=== PATIENT | female | born 1980 ===

== ENCOUNTER → 2022-12-04 15:10 | Outpatient (CLI) | payer OTHER, SELFPAY ==
--- NOTE | ~2022-12-04 | MR_ITS ---
EXAMINATION: MR ankle LT wo con DATE: 12/04/2022 16:00 INDICATION: Left ankle pain TECHNIQUE: Magnetic resonance imaging (MRI) of the left ankle was performed without intravenous contr ast. Sequences included sagittal, coronal, and axial proton-density weighted fast spin echo without a nd with fat saturation. COMPARISON: None. FINDINGS: Medial ankle ligaments: Deep and superficial deltoid ligaments as well as the spring ligament are normal. Lateral ankle ligaments: The anterior and posterior inferior tibiofibular ligaments are normal. The anterior talofibular, calc aneofibular and posterior talofibular ligaments are normal. Tendons: Minimal fusiform thickening of the distal Achilles tendon consistent with mild tendinosis without tea r or peritendinitis. Increased fluid extending along the peroneal tendon sheath consistent with moder ate tenosynovitis . The peroneus brevis tendon is normal. There is moderate tendinopathy of the peron eus longus tendon at and immediately proximal to the level of the cuboid where there are several hete rotopic ossicles within the tendon. The tibialis anterior and extensor hallucis longus and extensor d igitorum longus tendons are normal. The flexor digitorum longus and flexor hallucis longus tendons ar e normal. Small amount of fluid consistent mild tenosynovitis along the tendon sheath of the normal t ibialis posterior tendon. Plantar fascia: Plantar aponeurosis is normal. Bones/other: Bone alignment is normal. No fracture or pathologic marrow replacing process. 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 Remaining joint spaces appear relatively pr eserved. Fluid: Small joint effusions at the ankle and talonavicular joints. 15 x 5 x 4 mm ganglion cyst originating at the plantar aspect of the articulation between the medial and mid cuneiforms. IMPRESSION: 1. Moderate peroneal tenosynovitis with moderate tendinopathy of the peroneus longus tendon centered at the level of the cuboid. 2. Mild Achilles tendinosis. 3. Mild tenosynovitis along the normal tibialis posterior tendon. 4. 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 Reviewed, dictated and finalized at location L. IMPRESSION: 1. Moderate peroneal tenosynovitis with moderate tendinopathy of the peroneus l ongus tendon centered at the level of the cuboid. 2. Mild Achilles tendinosis. 3. Mild tenosynovitis along the normal tibialis posterior tendon. 4. 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
== END ==
PROVIDERS: PCP Podiatrist Foot & Ankle Surgery; Visit Provider Podiatrist Foot & Ankle Surgery
DX: M76.62 Achilles tendinitis, left leg (principal); M19.072 Primary osteoarthritis, left ankle and foot
CPT/HCPCS: 73721